=== PATIENT | female | born 1945 | race Caucasian/White ===

== ENCOUNTER 2019-03-12 05:27 | Inpatient (IN) | payer MEDICARE ==
[~2019-03-12] VITALS: Ht 161.3 cm; Wt 81.6 kg
[2019-03-12] MEDS ORDERED: LACTATED RINGERS 1,000 ML IV SCH (06:02)
[2019-03-12] MEDS ORDERED: TUMERIC CURCUMIN PO (06:21)
[2019-03-12] MEDS ORDERED: ASPI-515 PO (06:21)
[2019-03-12] MEDS ORDERED: CHLO25TA PO (06:21)
[2019-03-12] MEDS ORDERED: CBD PO (06:21)
[2019-03-12] MEDS ORDERED: CARV6.252 PO (06:21)
[2019-03-12] MEDS ORDERED: LISI-170 PO (06:21)
[2019-03-12] MEDS ORDERED: ACET-1600 PO (06:21)
[2019-03-12] MEDS ORDERED: AMLO-150 PO (06:21)
[2019-03-12] MEDS ORDERED: CHOL500045 PO (06:21)
[2019-03-12] MEDS ORDERED: UBID100C10 PO (06:21)
[2019-03-12] MEDS ORDERED: LOVA40TA2 PO (06:21)
[2019-03-12] MEDS ORDERED: LIDOCAINE-MPF 1%, 2ML INFIL ONE (06:30)
[2019-03-12 06:31] VITALS: BP 131/73
[2019-03-12] MEDS ORDERED: THROMBIN 5,000 UNIT VIAL TP ONE (07:07)
[2019-03-12] MEDS ORDERED: EPINEPHRINE 1 MG/ML, 1ML ONE (07:07)
[2019-03-12] MEDS ORDERED: VANCOMYCIN 1,000 MG ONE (07:07)
[2019-03-12] MEDS ORDERED: BUPIVACAINE/PF 0.5% ONE (07:07)
[2019-03-12] MEDS ORDERED: BACITRACIN 50,000 UNIT ONE (07:07)
[2019-03-12] MEDS ORDERED: OXYcodone IR 5MG TABLET PO ONE (07:14)
[2019-03-12] MEDS ORDERED: ACETAMINOPHEN 500 MG TABLET PO ONE (07:14)
[2019-03-12] MEDS ORDERED: GABAPENTIN 300 MG CAPSULE PO ONE (07:14)
[2019-03-12] MEDS ORDERED: MIDAZOLAM 1 MG/ML, 2ML ONE (07:17)
[2019-03-12] MEDS ORDERED: PROPOFOL 50 ML ONE ×2 (07:17→08:28)
[2019-03-12] MEDS ORDERED: FENTANYL PF 250 MCG/5ML ONE (07:17)
[2019-03-12] MEDS ORDERED: PROPOFOL 10 MG/ML, 20ML ONE (07:22)
[2019-03-12] MEDS ORDERED: DEXAMETHASONE 4 MG/ML, 1ML ONE ×2 (07:24)
[2019-03-12] MEDS ORDERED: SUCCINYLCHOLINE 20 MG/ML, 10ML ONE (07:24)
[2019-03-12] MEDS ORDERED: ONDANSETRON 2MG/ML, 2ML ONE (07:24)
[2019-03-12] MEDS ORDERED: ROCURONIUM 10MG/ML,5ML ONE (07:24)
[2019-03-12] MEDS ORDERED: LIDOCAINE-MPF 2% ,5ML ONE (07:24)
[2019-03-12] MEDS ORDERED: CEFAZOLIN 1,000 MG ONE ×2 (07:25)
[2019-03-12] MEDS ORDERED: THROMBIN 20,000 UNIT VIAL TP ONE (08:25)
[2019-03-12] MEDS ORDERED: OXYcodone 5 MG/5 ML ORAL.SOL UDC PO PRN (08:30)
[2019-03-12] MEDS ORDERED: LABETALOL 5MG/ML, 20ML IV PRN (08:30)
[2019-03-12] MEDS ORDERED: hydrALAzine 20 MG/ML, 1ML IV PRN (08:30)
[2019-03-12] MEDS ORDERED: MEPERIDINE/PF 25MG/ML,1ML IVPush PRN (08:30)
[2019-03-12] MEDS ORDERED: HYDROmorphone 2 MG/ML, 1ML IVPush PRN ×2 (08:30→10:00)
[2019-03-12] MEDS ORDERED: METOCLOPRAMIDE 5 MG/ML, 2ML IV PRN (08:30)
[2019-03-12] MEDS ORDERED: LORazepam 2 MG/ML, 1ML IVPush PRN (08:30)
[2019-03-12] MEDS ORDERED: ONDANSETRON 2MG/ML, 2ML IV PRN ×2 (08:30→11:00)
[2019-03-12] MEDS ORDERED: BACITRACIN OINT 500U/GM, 15 GM ONE (08:35)
[2019-03-12] MEDS ORDERED: OXYcodone 5 MG/5 ML ORAL.SOL UDC ONE (09:43)
[2019-03-12] MEDS ORDERED: FENTANYL PF 100 MCG/2ML ONE (09:43)
[2019-03-12] MEDS: FENTANYL PF 100 MCG/2ML IV PRN ×4 (09:46→10:14)
[2019-03-12] MEDS: OXYcodone 5 MG/5 ML ORAL.SOL UDC PO PRN ×2 (09:47→09:50)
[2019-03-12 10:36] VITALS: BP 125/55
[2019-03-12] MEDS ORDERED: HYDROcodone/APAP 10/325 MG TABLET PO PRN (11:00)
[2019-03-12] MEDS ORDERED: ACETAMINOPHEN 325 MG TABLET PO PRN (11:00)
[2019-03-12] MEDS ORDERED: OXYcodone/APAP 5/325MG TABLET PO PRN (11:00)
[2019-03-12] MEDS ORDERED: ACETAMINOPHEN 650 MG SUPP PR PRN (11:00)
[2019-03-12] MEDS ORDERED: DIPHENHYDRAMINE 50 MG/ML, 1ML IM PRN (11:00)
[2019-03-12] MEDS ORDERED: MAGNESIUM HYDROXIDE 8%, 30ML UDC PO PRN (11:00)
[2019-03-12] MEDS ORDERED: DIPHENHYDRAMINE 50 MG CAPSULE PO PRN (11:00)
[2019-03-12] MEDS ORDERED: HYDROcodone/APAP 5/325 TABLET PO PRN (11:00)
[2019-03-12] MEDS ORDERED: PROMETHAZINE 25 MG/ML, 1ML IM PRN (11:00)
[2019-03-12] MEDS ORDERED: morphine SULFATE 10 MG/ML, 1ML IV PRN (11:00)
[2019-03-12] MEDS ORDERED: BISACODYL 10 MG SUPP PR PRN (11:00)
[2019-03-12] MEDS ORDERED: PHARMACY MAY ADJ FOR RENAL FX MC PRN ×2 (11:00→11:30)
[2019-03-12] MEDS ORDERED: DIPHENHYDRAMINE 50 MG/ML, 1ML IVPush PRN (11:00)
[2019-03-12] MEDS: NS + 20MEQ KCL 1,000 ML IV SCH ×2 (11:54→21:00)
[2019-03-12] MEDS: CYCLOBENZAPRINE 10 MG TABLET PO PRN (13:54)
[2019-03-12 14:30] VITALS: BP 129/68
[2019-03-12] MEDS: CEFAZOLIN PMX 2GM/50ML 50 ML IVPB SCH ×2 (15:34→23:09)
[2019-03-12 17:58] VITALS: BP 124/53
[2019-03-12] MEDS: CARVEDILOL 6.25 MG TABLET PO SCH (17:59)
[2019-03-12 19:04] VITALS: BP 126/57
[2019-03-12] MEDS ORDERED: LOVASTATIN 40 MG TABLET PO SCH (21:00)
[2019-03-12 23:22] VITALS: BP 135/67
[2019-03-13] MEDS: CYCLOBENZAPRINE 10 MG TABLET PO PRN (02:05)
[2019-03-13] MEDS: NS + 20MEQ KCL 1,000 ML IV SCH (02:28)
[2019-03-13 03:24] VITALS: BP 135/54
[2019-03-13] MEDS: CARVEDILOL 6.25 MG TABLET PO SCH (06:10)
[2019-03-13 06:57] VITALS: BP 123/67
[2019-03-13] MEDS: CEFAZOLIN PMX 2GM/50ML 50 ML IVPB SCH (07:49)
[2019-03-13] MEDS ORDERED: LISINOPRIL 10 MG TABLET PO SCH (09:00)
[2019-03-13] MEDS ORDERED: CHOLECALCIFEROL 5,000u TAB PO SCH (09:00)
[2019-03-13] MEDS ORDERED: SENNA/DOCUSATE TABLET PO SCH (09:00)
[2019-03-13] MEDS ORDERED: AMLODIPINE 5 MG TABLET PO SCH (09:00)
[2019-03-13] MEDS ORDERED: CHLORTHALIDONE 25 MG TABLET PO SCH (09:00)
[2019-03-13] MEDS ORDERED: KETOROLAC 30 MG/1 ML IV ONE (11:00)
[2019-03-13] MEDS ORDERED: MAGNESIUM HYDROXIDE 8%, 30ML UDC PO ONE (11:00)
[2019-03-13] MEDS ORDERED: HYDR-3240 PO (11:34)
== END 2019-03-13 15:37 | disposition home or self-care (01) | DRG 460 ==
LOC: ORIP 05:27 → 4NE 10:30 → DCLOUNGE 03-13 13:15
PROVIDERS: ADMIT Neurological Surgery; ATTEND Neurological Surgery
PROC: 01NB0ZZ Release Lumbar Nerve, Open Approach (ICD-10-PCS; 2019-03-12)
PROC: 4A11X4G Monitoring of Peripheral Nervous Electrical Activity, Intraoperative, External Approach (ICD-10-PCS; 2019-03-12)
PROC: 0SG1071 Fusion of 2 or more Lumbar Vertebral Joints with Autologous Tissue Substitute, Posterior Approach, Posterior Column, Open Approach (ICD-10-PCS; principal; 2019-03-12 07:30)
DX: M48.062 Spinal stenosis, lumbar region with neurogenic claudication (principal); I10 Essential (primary) hypertension; E78.5 Hyperlipidemia, unspecified; M43.16 Spondylolisthesis, lumbar region; M54.16 Radiculopathy, lumbar region
CPT/HCPCS: 72100; G0378; J0171; J0690; J1100; J1885; J2250; J2405; J2704; J3010; J3370; J3480; J0330; J7120